=== PATIENT | male | born 1970 | race American Indian/Alaskan Native ===

== ENCOUNTER 2017-01-16 05:42 | Day surgery (SDC) | payer MEDICARE ==
[2017-01-16 06:45] LABS: Basophils % (Auto) 0.5 % (0.0-1.8); Eosinophils % (Auto) 1.9 % (0.0-4.3); Hematocrit 35.1 % (35.5-45.6); Mean Corpuscular HGB Conc 34 % (32-34); Mean Corpuscular Hemoglobin 32 pg (28-32); Mean Corpuscular Volume 92 fl (84-94); Platelet Count 192 K/mm3 (140-440); Red Blood Count 3.82 M/mm3 (3.65-5.03); Red Cell Distribution Width 14.4 % (13.2-15.2); White Blood Count 10.3 K/mm3 (4.5-11.0)
[2017-01-16 06:57] LABS: INR 0.98 (0.87-1.13)
[2017-01-16] MEDS ORDERED: NACL 0.9% 500 ML 500 ML IV SCH (07:00)
[2017-01-16 07:03] LABS: Blood Urea Nitrogen 20 mg/dL (9-20); Calcium 8.8 mg/dL (8.4-10.2); Carbon Dioxide 31 mmol/L (22-30); Chloride 99.9 mmol/L (98-107); Glucose 108 mg/dL (75-100); Sodium 143 mmol/L (137-145)
[2017-01-16 07:06] LABS: Anion Gap 17 mmol/L; Potassium 4.4 mmol/L (3.6-5.0)
[2017-01-16] MEDS ORDERED: ECOTRIN PO ONE (07:30)
[2017-01-16] MEDS ORDERED: HEPARIN/NS 5000 UNIT/500ML(CATH LAB) 1,000 ML IR ONE (07:52)
[2017-01-16] MEDS ORDERED: HEPARIN 10,000 UNITS/10 ML ONE (07:52)
[2017-01-16] MEDS ORDERED: XYLOCAINE 2% INFILTRATI ONE (07:53)
[2017-01-16] MEDS ORDERED: CALAN ONE (07:53)
[2017-01-16] MEDS ORDERED: NITROGLYCERIN SYRINGE 0 ML ONE (07:53)
[2017-01-16] MEDS ORDERED: NACL 0.9% 500 ML 0 ML ONE (07:55)
[2017-01-16] MEDS ORDERED: VERSED ONE (07:55)
[2017-01-16] MEDS ORDERED: NITROGLYCERIN SYRINGE 3 ML ONE (08:00)
[2017-01-16] MEDS: SUBLIMAZE ONE ×2 (08:34→08:40)
--- NOTE | 2017-01-16 09:21 | Discharge Summary ---
Short Stay Discharge Plan Activity: no driving until cleared by PCP (for 48hrs) Diet: low fat, low cholesterol, low salt Follow up with: JANEY HICKS MD [Primary Care Provider] - 7 Days
[2017-01-16] MEDS ORDERED: CATAPRES PO ONE (11:00)
[2017-01-16] MEDS ORDERED: ULTRAM PO PRN (11:00)
[2017-01-16] MEDS ORDERED: CATAPRES ONE (11:04)
[2017-01-16 11:56] VITALS: BP 165/79
--- NOTE | 2017-01-23 18:33 | Cardiac Catherization Report ---
HISTORY: The patient is a 46-year-old male, who was referred for coronary angiography. Please see the history and physical for additional details. PROCEDURE: Left heart catheterization, ventriculography, and coronary angiography via the right radial artery using 5-Yakut Flaquito catheters and the pigtail catheter. COMPLICATIONS: None. TISSUE SAMPLES: None. SEDATION: Intravenous Versed and fentanyl. ESTIMATED BLOOD LOSS: 10 to 20 mL. PREPROCEDURE DIAGNOSIS: Possible coronary artery disease. POSTPROCEDURE DIAGNOSIS: Mild coronary disease. HEMODYNAMICS: Central aortic pressure 160/107. Left ventricular pressure 159/20. ANGIOGRAPHIC RESULTS: 1. Left ventricle: The ventriculogram reveals a normal sized left ventricle with normal systolic function. The ejection fraction is 60% to 65%. 2. Right coronary artery: This is a dominant vessel and it is of a large caliber. There are mild intimal irregularities. 3. Left coronary artery: Large caliber vessel with mild intimal irregularities. There is relatively small caliber ramus intermedius branch with an ostial 70% stenosis. FINAL IMPRESSION: Normal left ventricular function. There is a ramus intermedius branch with an ostial 70% stenosis. PLAN: Aggressive medical therapy, CAD risk factor modification, office followup within 7 days. JOB# [id number] HANY/ADAN
== END 2017-01-16 05:43 | disposition home or self-care (01) ==
LOC: CATHLABREC 05:42
PROVIDERS: ATTEND Internal Medicine Cardiovascular Disease
DX: I25.10 Atherosclerotic heart disease of native coronary artery without angina pectoris (principal); Z88.2 Allergy status to sulfonamides; E78.5 Hyperlipidemia, unspecified; I10 Essential (primary) hypertension; Z79.899 Other long term (current) drug therapy
CPT/HCPCS: 36415; 80048; 85025; 85610; 85730; 93005; 93010; 93458; C1894; J1644; J2250; J3010; J7040; Q9967

== ENCOUNTER 2017-06-12 11:09 | Emergency (ER) | payer MEDICARE ==
[2017-06-12 11:38] VITALS: BP 165/89
[2017-06-12] MEDS ORDERED: DELTASONE PO ONE (12:02)
[2017-06-12] MEDS ORDERED: PROVENTIL IH ONE ×2 (12:02→14:09)
[2017-06-12] MEDS ORDERED: ATROVENT IH ONE (12:03)
--- NOTE | 2017-06-12 12:22 | XRay Report ---
ROUTINE CHEST, TWO VIEWS: HISTORY: Cough. The trachea, heart, mediastinal contour, lung bowers are unremarkable. Moderate to severe dextroscoliosis of the thoracic spine is noted. IMPRESSION: Scoliosis. No acute process identified.
--- NOTE | 2017-06-12 12:25 | Emergency Department Report ---
Blank Doc - Documentation Documentation: Patient is a 46-year-old [place] male with a past history of asthma who is presenting with cough, congestion and wheezing. Patient states symptoms present for 2 days. Patient denies fever nausea vomiting Oddi aches. Brief physical exam patient does have diffuse wheeze vital signs are within normal limits. Patient was given albuterol and Atrovent neb treatment prednisone and chest x-ray be ordered will be followed that with the [facility].
[2017-06-12] MEDS ORDERED: MAGNESIUM SULFATE 2GM/50ML 2 GM/50 ML BAG IV ONE (14:09)
--- NOTE | 2017-06-12 14:11 | Emergency Department Report ---
ED Asthma HPI - General Chief Complaint: Upper Respiratory Infection Stated Complaint: FLU LIKE SYMPTOMS Time Seen by Provider: 06/12/17 12:01 Source: patient Mode of arrival: Ambulatory Limitations: No Limitations - History of Present Illness Initial Comments: Patient here reports asthma attack that started yesterday and getting worse. He said he is out of his Qvar and is ProAir and he does have access to his primary care physician. He said that he does have an appointment for the next couple weeks and they will call in his medication. Patient uses home O2 at home and also says that he needs a refill on his medication. Patient uses albuterol nebulizer which he said he has. Reports some shortness of breath but denies any chest pain. Patient is a history of pulmonary embolism and takes blood thinner daily which he said he takes everyday. MD Complaint: "asthma attack", shortness of breath, wheezing Onset/Timin -: days(s), Gradual Asthma History: childhood onset, history of prior ED visit Severity: similar to prior Context: recent URI, ran out of meds, exercise Associated Symptoms: dry cough. denies: productive cough, fever, chest pain, hemoptysis, leg edema, syncope Treatments Prior to Arrival: inhaled bronchodilator, inhaled steroid - Related Data Current Asthma Therapy: inhaled bronchodilator, inhaled steroid Home Medications Medication Instructions Recorded Confirmed Last Taken Apixaban [Eliquis] 5 mg PO DAILY 01/16/17 01/16/17 01/15/17 Colchicine [Colcrys] 0.6 mg PO DAILY 01/16/17 01/16/17 01/15/17 Furosemide [Lasix TAB] 40 mg PO QDAY 01/16/17 01/16/17 01/16/17 04:00 Gabapentin [Neurontin] 300 mg PO Q8HR PRN 01/16/17 01/16/17 Unknown Indomethacin [Indocin] 50 mg PO BID 01/16/17 01/16/17 Unknown Losartan [Cozaar] 25 mg PO QDAY 01/16/17 01/16/17 01/16/17 04:00 Oxycodone HCl [Oxaydo] 7.5 mg PO PRN PRN 01/16/17 01/16/17 Unknown Simvastatin [Zocor TAB] 20 mg PO QHS 01/16/17 01/16/17 01/15/17 amLODIPine [Norvasc] 10 mg PO DAILY 01/16/17 01/16/17 01/16/17 04:00 cloNIDine [Catapres] 0.1 mg PO BID 01/16/17 01/16/17 01/16/17 04:00 Previous Rx's Medication Instructions Recorded Last Taken Type ALBUTEROL Inhaler [Proair] 2 puff IH QID PRN #1 inhalation 06/12/17 Unknown Rx Beclomethasone Dipropionate [Qvar] 2 puff IH BID 30 Days #1 aer.w.adap 06/12/17 Unknown Rx Cetirizine HCl [ZyrTEC] 10 mg PO QDAY 14 Days #14 capsule 06/12/17 Unknown Rx Fluticasone [Flonase] 1 spray NS QDAY 14 Days #1 bottle 06/12/17 Unknown Rx methylPREDNISolone [Medrol Dose 4 mg PO QAM 1 Days #1 pack 06/12/17 Unknown Rx Isidro] Allergies Allergy/AdvReac Type Severity Reaction Status Date / Time shellfish derived Allergy Swelling Unverified 01/16/17 05:43 Sulfa (Sulfonamide Allergy Swelling Unverified 01/16/17 05:44 Antibiotics) ED Review of Systems ROS: Stated complaint: FLU LIKE SYMPTOMS Other details as noted in HPI Comment: All other systems reviewed and negative Constitutional: no symptoms reported Eyes: denies: eye pain, eye discharge ENT: congestion. denies: ear pain, throat pain, epistaxis Respiratory: no symptoms reported Cardiovascular: denies: chest pain, palpitations, dyspnea on exertion, edema, syncope, paroxysmal nocturnal dyspnea Gastrointestinal: denies: abdominal pain, nausea, vomiting, diarrhea, constipation, hematemesis, melena, hematochezia Genitourinary: denies: urgency, dysuria, frequency, hematuria, discharge Musculoskeletal: denies: back pain, joint swelling, arthralgia, myalgia Skin: denies: rash Neurological: denies: headache, weakness, numbness, paresthesias, confusion, abnormal gait, vertigo ED Past Medical Hx - Past Medical History Previous Medical History?: Yes Hx Hypertension: Yes Hx Deep Vein Thrombosis: Yes (pt on eliquis) Hx Asthma: Yes Hx HIV: No - Surgical History Past Surgical History?: No - Family History Family history: hypertension - Social History Smoking Status: Never Smoker Substance Use Type: None - Medications Home Medications: Home Medications Medication Instructions Recorded Confirmed Last Taken Type Apixaban [Eliquis] 5 mg PO DAILY 01/16/17 01/16/17 01/15/17 History Colchicine [Colcrys] 0.6 mg PO DAILY 01/16/17 01/16/17 01/15/17 History Furosemide [Lasix TAB] 40 mg PO QDAY 01/16/17 01/16/17 01/16/17 04:00 History Gabapentin [Neurontin] 300 mg PO Q8HR PRN 01/16/17 01/16/17 Unknown History Indomethacin [Indocin] 50 mg PO BID 01/16/17 01/16/17 Unknown History Losartan [Cozaar] 25 mg PO QDAY 01/16/17 01/16/17 01/16/17 04:00 History Oxycodone HCl [Oxaydo] 7.5 mg PO PRN PRN 01/16/17 01/16/17 Unknown History Simvastatin [Zocor TAB] 20 mg PO QHS 01/16/17 01/16/17 01/15/17 History amLODIPine [Norvasc] 10 mg PO DAILY 01/16/17 01/16/17 01/16/17 04:00 History cloNIDine [Catapres] 0.1 mg PO BID 01/16/17 01/16/17 01/16/17 04:00 History ALBUTEROL Inhaler [Proair] 2 puff IH QID PRN #1 inhalation 06/12/17 Unknown Rx Beclomethasone Dipropionate [Qvar] 2 puff IH BID 30 Days #1 aer.w.adap 06/12/17 Unknown Rx Cetirizine HCl [ZyrTEC] 10 mg PO QDAY 14 Days #14 capsule 06/12/17 Unknown Rx Fluticasone [Flonase] 1 spray NS QDAY 14 Days #1 bottle 06/12/17 Unknown Rx methylPREDNISolone [Medrol Dose 4 mg PO QAM 1 Days #1 pack 06/12/17 Unknown Rx Isidro] ED Physical Exam - General Limitations: No Limitations General appearance: alert, in no apparent distress - Head Head exam: Present: atraumatic, normocephalic, normal inspection - Eye Eye exam: Present: normal appearance, PERRL, EOMI. Absent: periorbital swelling , periorbital tenderness Pupils: Present: normal accommodation - ENT ENT exam: Present: normal orophraynx, mucous membranes moist, normal external ear exam, other (bilateral nasal mucosa congested with clear drainage and no maxillary or frontal sinus tenderness). Absent: normal exam, TM's normal bilaterally (bilateral TM congested without any erythema) - Neck Neck exam: Present: normal inspection, full ROM. Absent: tenderness, meningismus, lymphadenopathy, thyromegaly - Respiratory Respiratory exam: Present: wheezes, accessory muscle use, other (dry cough). Absent: normal lung sounds bilaterally, rales, rhonchi, stridor, chest wall tenderness, decreased breath sounds, prolonged expiratory - Cardiovascular Cardiovascular Exam: Present: regular rate, normal rhythm, normal heart sounds. Absent: systolic murmur, diastolic murmur - GI/Abdominal GI/Abdominal exam: Present: soft, normal bowel sounds. Absent: distended, tenderness, guarding, rebound, rigid, organomegaly, mass, bruit, pulsatile mass , hernia - Extremities Exam Extremities exam: Present: normal inspection, full ROM, normal capillary refill , other (no clubbing, cyanosis or edema to extremities. +2 pulses or extremities and no neurovascular compromise). Absent: tenderness, pedal edema, joint swelling, calf tenderness - Back Exam Back exam: Present: normal inspection, full ROM, other (ambulates without any difficulties). Absent: tenderness, CVA tenderness (R), CVA tenderness (L), muscle spasm, paraspinal tenderness, vertebral tenderness, rash noted - Neurological Exam Neurological exam: Present: alert, oriented X3, normal gait, reflexes normal. Absent: motor sensory deficit - Psychiatric Psychiatric exam: Present: normal affect, normal mood - Skin Skin exam: Present: warm, dry, intact, normal color. Absent: rash ED Course Vital Signs 06/12/17 11:33 Temperature 98.3 F Pulse Rate 75 Respiratory 16 Rate Blood Pressure 165/89 O2 Sat by Pulse 93 Oximetry - Reevaluation(s) Reevaluation #1: 06/12/17 14:12 Patient received albuterol 10 mg nebulizer and Atrovent 1 mg nebulizer with Deltasone 60 mg by mouth and still wheezing throughout his lung calderón and walk- in O2 sat is 83% on room air. Patient said he felt better but still wheezing with poor O2 sat. Chest x-ray is normal. Patient has a history of PE but he is on eliquis and he is not having any chest pain at present. Reevaluation #2: 06/12/17 16:00 Patient received magnesium sulfate 2 g IV, additional 7.5 mg of albuterol nebulizer. Reevaluation lung sounds better mild scattered wheezes and and his O2 sat is 84% on room air and patient wears oxygen at home. He states feeling a lot better. ED Medical Decision Making - Radiology Data Radiology results: report reviewed Chest revealed no acute cardiopulmonary processes - Medical Decision Making ED course: Patient here with acute asthma exacerbation physical findings for widespread reason throughout lung calderón and some shortness of breath. Patient does not have any chest pain but he said he takes Eliquis for previous pulmonary embolism. He does have a primary care physician. He denies missing any dosages of Eliquis. Patient had similar incident with asthma attack in the past. He said his last asthma attack was one year ago and reports never been intubated. He received 10 mg of albuterol nebulizer, 1 mg of Atrovent nebulizer. Deltasone 60 mg by mouth. Up and reevaluation patient was still wheezing and his exercise pulse ox is 83% on room air. He received additional 7.5 mg of albuterol and 2 g of magnesium. Exercise pulse ox is 95% on room air. He states that he feels a lot better. Patient takes Qvar 40 mcg, daily which he said he ran out and would like a refill. He also takes ProAir but he said he ran out. Patient has obstructive sleep apnea and says he uses oxygen at night. He said his oxygenation is THE LOW SIDE FROM HIS CHRONIC ASTHMA. UPON REEVALUATION AFTER MAGNESIUM AND LAST DOSE OF ALBUTEROL, PATIENT WAS SCATTERED WHEEZES INTO LUNG CALDERÓN AND IS ABLE TO AMBULATE AND DOES NOT APPEAR TO BE SHORT OF BREATH. I DISCUSSED THE PATIENT HE NEEDS TO CALL HIS PRIMARY CARE PHYSICIAN TO SCHEDULE AN APPOINTMENT FOR FOLLOW-UP VISIT. DISCHARGED HOME IN STABLE CONDITION WITH HIS FAMILY A PRESCRIPTION FOR QVAR, PRO-AIR AND MEDROL DOSEPAK. Critical care attestation.: If time is entered above; I have spent that time in minutes in the direct care of this critically ill patient, excluding procedure time. ED Disposition Clinical Impression: Low oxygen saturation, Cough in adult, H/O sleep apnea Asthma attack Qualifiers: Asthma severity: moderate Asthma persistence: persistent Qualified Code(s): J45.41 - Moderate persistent asthma with (acute) exacerbation Disposition: DC-01 TO HOME OR SELFCARE Is pt being admited?: No Does the pt Need Aspirin: No Condition: Stable Instructions: Asthma (ED), Acute Cough (ED), Using Oxygen at Home (ED) Additional Instructions: call your primary care physician in the morning to schedule an appointment for follow-up visit for close asthma attack. Take medication as prescribed If his symptoms worsens, return to the emergency room. Prescriptions: ALBUTEROL Inhaler [Proair] 2 puff IH QID PRN #1 inhalation PRN Reason: WHEEZING/COUGH Beclomethasone Dipropionate [Qvar] 2 puff IH BID 30 Days #1 aer.w.adap Cetirizine HCl [ZyrTEC] 10 mg PO QDAY 14 Days #14 capsule Fluticasone [Flonase] 1 spray NS QDAY 14 Days #1 bottle methylPREDNISolone [Medrol Dose Isidro] 4 mg PO QAM 1 Days #1 pack Referrals: PRIMARY MD GAGAN [Primary Care Provider] - 06/13/17 CELIO REGAN MD [Staff Physician] - 06/16/17 Forms: Accompanied Note, Work/School Release Form(ED)
== END 2017-06-12 16:56 | disposition home or self-care (01) ==
LOC: ED 11:09
DX: J45.41 Moderate persistent asthma with (acute) exacerbation (principal); G47.30 Sleep apnea, unspecified; I10 Essential (primary) hypertension
CPT/HCPCS: 71046; 94644; 96365; 99284; J3475; J7512

== ENCOUNTER 2020-12-27 09:25 | Day surgery (SDC) | payer MEDICARE ==
[2020-12-25 13:02] LABS: Hematocrit 39.7 % (35.5-45.6); Hemoglobin 13.3 gm/dl (11.8-15.2); Mean Corpuscular HGB Conc 34 % (32-34); Mean Corpuscular Volume 90 fl (84-94); Platelet Count 170 K/mm3 (140-440); Red Blood Count 4.42 M/mm3 (3.65-5.03); Red Cell Distribution Width 14.5 % (13.2-15.2)
[2020-12-25 13:18] LABS: BUN/Creatinine Ratio 28; Blood Urea Nitrogen 22 mg/dL (9-20); Calcium 9.4 mg/dL (8.4-10.2); Hemolysis Index 14
--- NOTE | 2020-12-25 13:26 | Anesthesia Consultation ---
Anesthesia Consult and Med Hx Date of service: 12/27/20 - Airway Anesthetic Teeth Evaluation: Good, Partials (upper) ROM Head & Neck: Adequate Mental/Hyoid Distance: Adequate Mallampati Class: Class II Intubation Access Assessment: Possibly Difficult (hx trach in 2005) - Pulmonary Exam CTA: Yes - Cardiac Exam Cardiac Exam: RRR - Pre-Operative Health Status ASA Pre-Surgery Classification: ASA3 Proposed Anesthetic Plan: General - Pulmonary Hx Smoking: Yes (quit 1 yr) Hx Asthma: Yes (symbicort BID) Hx Respiratory Symptoms: No Hx Sleep Apnea: Yes (nocturnal O2, no CPAP) - Cardiovascular System Hx Hypertension: Yes Hx Heart Attack/AMI: No Hx Percutaneous Transluminal Coronary Angioplasty (PTCA): No Hx Cardia Arrhythmia: No Hx Peripheral Vascular Disease: No (hx DVT; last dose eliquis 12/21/20) - Central Nervous System CVA: No - Endocrine Hx Renal Disease: No Hx Liver Disease: No Hx Insulin Dependent Diabetes: No Hx Non-Insulin Dependent Diabetes: No Hx Thyroid Disease: No - Other Systems Hx Obesity: Yes (BMI 37) - Additional Comments Anesthesia Medical History Comments: No hx anesthetic complications
[~2020-12-27 09:25] MED LIST: LACTATED RINGERS 1,000 ML IV SCH
--- NOTE | 2020-12-27 10:27 | Anesthesia Day of Surgery ---
Anesthesia Day of Surgery - Day of Surgery Patient Examined: Yes Patient H&P Reviewed: Yes Patient is NPO: Yes
[2020-12-27] MEDS ORDERED: ONDANSETRON 4 MG/2 ML INJ IV PRN (10:28)
[2020-12-27] MEDS ORDERED: MIDAZOLAM 2 MG/2 ML INJ IV NR (11:00)
[2020-12-27] MEDS ORDERED: dexAMETHasone 20 MG/5 ML VIAL ONE (12:30)
[2020-12-27] MEDS ORDERED: ONDANSETRON 4 MG/2 ML INJ ONE (12:30)
[2020-12-27] MEDS ORDERED: fentaNYL 100 MCG/2 ML INJ ONE (12:43)
[2020-12-27] MEDS ORDERED: LIDOCAINE MPF (2%) 20 MG/1 ML VIAL 5 ML ONE (12:43)
[2020-12-27] MEDS ORDERED: propofoL 200 MG/20 ML VIAL IV ONE (12:43)
[2020-12-27 13:11] LABS: INR 0.99 (0.87-1.13)
[2020-12-27 13:12] LABS: Partial Thromboplastin Time 28.6 Sec. (24.2-36.6)
[2020-12-27] MEDS ORDERED: WATER FOR IRRIG STERILE 1,000 ML BOTTLE IR ONE (14:11)
[2020-12-27] MEDS ORDERED: SODIUM CHLORIDE 0.9% IRRIG SOLN 2000 ML IR ONE (14:12)
[2020-12-27] MEDS: fentaNYL 100 MCG/2 ML INJ IV PRN ×2 (14:25→14:37)
--- NOTE | 2020-12-27 14:26 | Operative Report ---
DATE OF SURGERY: 12/27/2020 TIME: Approximately 1 p.m. PREOPERATIVE DIAGNOSIS: Benign prostatic hyperplasia with refractory LUTS despite maximal medical therapy. POSTOPERATIVE DIAGNOSIS: Benign prostatic hyperplasia with refractory LUTS despite maximal medical therapy. OPERATIVE PROCEDURE: Transurethral vaporization of the prostate and a transurethral vaporization/incision of the prostate. ATTENDING: Joe Reyna M.D. ANESTHESIA: General. ESTIMATED BLOOD LOSS: 50 mL DRAINS: A 22-Portuguese latex-free Conte catheter. SPECIMENS: TUR chips. COMPLICATIONS: None. INDICATIONS FOR PROCEDURE: The patient is a 50-year-old man with refractory LUTS despite maximal medical therapy. After discussion of the risks, benefits and alternatives and possible other treatments, the patient elected for outlet reduction. DESCRIPTION OF PROCEDURE: After induction of suitable anesthesia and proper positioning and preparation in the dorsal lithotomy position, an Olympus bipolar resectoscope was used to enter the bladder under direct visualization. The patient did not have a very large prostate; however, he did have a high bladder neck and had an obstructive nature. The ureteral orifices were identified and they were kept visualized and identified throughout the procedure. Using the button electrode, the bladder neck was incised at the 5 and 7 o'clock position. We used the button, so it was essentially a vaporization of the bladder neck. The bladder neck was carried down to the underlying muscular fibers. The remaining excess tissue was resected and vaporized to reduce the prostate. The incision should help to improve the patient's voiding symptoms. Diligent attention was paid to hemostasis. The outlet was hemostatic at the end of the procedure. The button and the loop electrocautery was used to ensure hemostasis. It should be noted that during the procedure, the loop was used to resect some of the lateral lobe. This tissue was sent off for pathologic review. Once the chips were removed and hemostasis was ensured, the resectoscope was then removed. A Conte catheter was placed. The patient was then awakened from anesthesia and transported to the recovery room in stable condition. He tolerated the procedure well. He will return to the office in 2 days for catheter removal. TID: [id number] RECEIPT: [id number] NESHA/JEFF
[2020-12-27 16:23] VITALS: BP 153/72
--- NOTE | 2020-12-27 17:41 | Post Anesthesia Evaluation ---
- Post Anesthesia Evaluation Patient Participated: Yes Airway Patent: Yes Stable Respiratory Function: Yes Nausea/Vomiting: No Temp > 96.8F: Yes Pain Manageable: Yes Adequeate Hydration: Yes Anesthesia Complications: No
== END 2020-12-27 15:50 | disposition home or self-care (01) ==
LOC: OR 09:25
PROVIDERS: ATTEND Urology
DX: N40.0 Benign prostatic hyperplasia without lower urinary tract symptoms (principal); J45.901 Unspecified asthma with (acute) exacerbation; G47.30 Sleep apnea, unspecified; E66.9 Obesity, unspecified; D46.4 Refractory anemia, unspecified; I10 Essential (primary) hypertension; E78.00 Pure hypercholesterolemia, unspecified; M10.9 Gout, unspecified; M19.90 Unspecified osteoarthritis, unspecified site; Z86.73 Personal history of transient ischemic attack (TIA), and cerebral infarction without residual deficits; Z87.891 Personal history of nicotine dependence; Z79.82 Long term (current) use of aspirin; Z79.899 Other long term (current) drug therapy; Z98.890 Other specified postprocedural states; Z91.040 Latex allergy status; Z91.013 Allergy to seafood; Z88.8 Allergy status to other drugs, medicaments and biological substances; Z88.2 Allergy status to sulfonamides
CPT/HCPCS: 36415; 52648; 80048; 85027; 85610; 85730; 86850; 86900; 86901; 88305; A4217; J1100; J2250; J2405; J2704; J3010; J7120